=== PATIENT | male | born 1985 | race Two or more races ===

== ENCOUNTER → 2022-02-09 14:53 | Outpatient (BNVA) | payer OTHER, SELFPAY | PROVIDERS: Visit Provider Emergency Medicine | DX: N39.0 Urinary tract infection, site not specified (principal) | CPT/HCPCS: 81000 ==

== ENCOUNTER 2022-11-16 13:40 | Outpatient (CLI) | payer MEDICARE, SELFPAY ==
--- NOTE | 2022-11-16 13:45 | USCV_ITS ---
Chavez Solorzano Age: 37 Gender: M : 1985 Exam Date: 11/16/2022 14:10 Ordering Phys: Samuel Courtney MD Technologist: LAURA Exam Location: [facility] – [place] Indication: murmur BP: 90 / 60 HR: 66 Rhythm: Sinus Technical Quality: Adequate MEASUREMENTS (Male / Female) Normal Values 2D ECHO LVOT Diameter 2.0 cm LV Ejection Fraction MOD 2C 61.4 % LV Ejection Fraction 2C AL 59.6 % LA Diameter 4.0 cm LA Width 4.0 cm LA Height 5.8 cm RA Width 4.6 cm RA Height 5.0 cm Aorta at Sinotubular Diameter 2.3 cm IVC Diameter 1.0 cm M-MODE Aortic Annulus Diameter 3.2 cm LA Ao Ratio MM 1.1 MV E Point Septal Separation 0.7 cm DOPPLER AV Peak Velocity 172.0 cm/s LVOT Peak Velocity 85.0 cm/s AV Area Cont Eq vti 1.3 cm squared AV Area Cont Eq pk 1.6 cm squared MV Peak Velocity 183.0 cm/s MV Area PHT 2.1 cm squared Mitral E to A Ratio 1.6 MV E' Velocity 82.0 cm/s Mitral E to MV E' Ratio 19.1 Mitral E to LV E' Lateral Ratio 19.1 Mitral E to LV E' Septal Ratio 19.1 TR Peak Velocity 264.2 cm/s TR Peak Gradient 27.9 mmHg TR Mean Velocity 214.3 cm/s TR Mean Gradient 19.0 mmHg TR Velocity Time Integral 108.9 cm TV Peak E Velocity 54.0 cm/s Right Atrial Pressure 3.0 mmHg Pulmonary Artery Systolic Pressu 30.9 mmHg PV Peak Velocity 126.0 cm/s RV Acceleration Time 0.2 s RV Ejection Time 0.3 s RV AcT/ET 0.5 FINDINGS Left Ventricle Normal left ventricular size and systolic function, EF 57 %. No regional wall motion abnormalities. Right Ventricle Mildly increased right ventricular size. Normal right ventricular systolic function. Right Atrium Mildly increased right atrial size. Left Atrium The left atrium is normal in size. Mitral Valve Mild prolapse of the anterior mitral leaflet. Mild to moderate eccentric mitral regurgitation with the regurgitant jet directed posteriorly. Mitral valve area by pressure half-time is 2.12 cm squared Aortic Valve No gross abnormalities noted Tricuspid Valve Trace to mild tricuspid valve regurgitation. Pulmonic Valve No gross abnormalities noted Pericardium No pericardial effusion. Aorta Normal aortic annulus size. IVC Normal inferior vena cava. CONCLUSIONS Normal left ventricular size and systolic function, EF 57 %. No regional wall motion abnormalities. Mild prolapse of the anterior mitral leaflet. Mild to moderate eccentric mitral regurgitation with the regurgitant jet directed posteriorly. Mitral valve area by pressure half-time is 2.12 cm squared. Trace to mild tricuspid valve regurgitation. Estimated pulmonary artery peak systolic pressure 31 mmHg. There is no pericardial effusion. There are no intracardiac masses. No similar previous studies are available for comparison Dr Abigail Ramírez MD [facility] (Electronically Signed) Final Date: 16 November 2022 17:48 S
== END 2022-11-16 13:41 | disposition home or self-care (01) ==
LOC: RAD 13:43
PROVIDERS: PCP Family Medicine Adult Medicine; Visit Provider Family Medicine Adult Medicine
DX: R01.1 Cardiac murmur, unspecified (principal); I08.1 Rheumatic disorders of both mitral and tricuspid valves
CPT/HCPCS: 93306

== ENCOUNTER → 2022-12-12 11:09 | Outpatient (BNVA) | payer MEDICARE, SELFPAY | PROVIDERS: PCP Family Medicine Adult Medicine; Visit Provider Nurse Practitioner Family | DX: R39.9 Unspecified symptoms and signs involving the genitourinary system (principal) | CPT/HCPCS: 81000 ==

== ENCOUNTER → 2023-01-11 07:48 | Outpatient (BNVA) | payer MEDICARE, SELFPAY | PROVIDERS: PCP Family Medicine Adult Medicine; Visit Provider Family Medicine Adult Medicine | DX: R63.5 Abnormal weight gain (principal); E66.9 Obesity, unspecified; N40.1 Benign prostatic hyperplasia with lower urinary tract symptoms; R30.0 Dysuria; Z00.00 Encounter for general adult medical examination without abnormal findings; Q24.9 Congenital malformation of heart, unspecified; Q90.9 Down syndrome, unspecified | CPT/HCPCS: 80053; 80061; 83036; 84443; G0103 ==

== ENCOUNTER 2023-02-23 11:35 | Outpatient (CLI) | payer MEDICARE, SELFPAY ==
--- NOTE | 2023-02-23 11:30 | USCV_ITS ---
Chavez Solorzano Age: 37 Gender: M : 1985 Exam Date: 02/23/2023 12:03 Ordering Phys: Che Reyna Technologist: Alexx Hector Exam Location: [facility] [place]ication: right lower leg pain PROCEDURES: Venous duplex imaging was performed in only the right lower extremity. The following venous structures were evaluated: common femoral vein, profunda vein, proximal portion of the greater saphenous vein, superficial femoral vein, and the popliteal vein. In addition, the posterior tibial and peroneal trunk were evaluated. Serial compression, augmentation maneuvers, and spectral Doppler flow evaluation were performed. FINDINGS: Normal 2-D Doppler and augmentation and compressibility throughout the lower extremity venous structures. Additional imaging through the proximal calf veins also reveals no thrombus. Limited evaluation of the greater saphenous vein is patent with no thrombus. CONCLUSIONS No evidence of right lower extremity DVT. Siddharth Christensen MD (Electronically Signed) Final Date: 23 Feb 2023 13:33 S
== END 2023-02-23 11:36 | disposition home or self-care (01) ==
PROVIDERS: PCP Family Medicine Adult Medicine; Visit Provider Registered Nurse Neonatal Intensive Care
DX: M79.661 Pain in right lower leg (principal)
CPT/HCPCS: 93971

== ENCOUNTER → 2023-03-29 13:29 | Outpatient (BNVA) | payer MEDICARE, SELFPAY | PROVIDERS: PCP Family Medicine Adult Medicine; Visit Provider Specialist | DX: S89.91XA Unspecified injury of right lower leg, initial encounter (principal); W01.0XXA Fall on same level from slipping, tripping and stumbling without subsequent striking against object, initial encounter | CPT/HCPCS: 73560; 73565; 99204 ==

== ENCOUNTER → 2023-05-08 10:04 | Outpatient (BNVA) | payer MEDICARE, SELFPAY | PROVIDERS: PCP Family Medicine Adult Medicine; Visit Provider Nurse Practitioner Family | DX: S89.91XA Unspecified injury of right lower leg, initial encounter (principal); W01.0XXA Fall on same level from slipping, tripping and stumbling without subsequent striking against object, initial encounter; R52 Pain, unspecified | CPT/HCPCS: 71046; 99213 ==

== ENCOUNTER 2023-06-06 10:42 | Outpatient (CLI) | payer MEDICARE, SELFPAY ==
--- NOTE | 2023-06-06 13:45 | MR_ITS ---
WS: [id number] MRI RIGHT LOWER EXTREMITY WITHOUT CONTRAST. COMPARISON: Knee radiograph 03/21/2023. Multiplanar, multisequence imaging is performed without contrast. No acute fracture or signal abnormality is identified. The tibial plateau appears intact. There is no marrow edema appreciated. The knee joint is not as well visualized as it is on the edge of the magne tic field. There is a small suprapatellar joint effusion. No muscle edema and no muscle atrophy. IMPRESSION: 1. Small suprapatellar joint effusion. 2. No marrow edema or fractures. 3. No muscle atrophy.
== END 2023-06-06 10:43 | disposition home or self-care (01) ==
PROVIDERS: PCP Family Medicine Adult Medicine; Visit Provider Nurse Practitioner Family
DX: S89.91XA Unspecified injury of right lower leg, initial encounter (principal); M79.604 Pain in right leg; X58.XXXA Exposure to other specified factors, initial encounter; M25.461 Effusion, right knee
CPT/HCPCS: 73718

== ENCOUNTER → 2023-06-16 09:53 | Outpatient (BNVA) | payer MEDICARE, SELFPAY | PROVIDERS: PCP Family Medicine Adult Medicine; Visit Provider Internal Medicine | DX: Q90.9 Down syndrome, unspecified (principal); Q24.9 Congenital malformation of heart, unspecified; I34.0 Nonrheumatic mitral (valve) insufficiency | CPT/HCPCS: 99214 ==

== ENCOUNTER → 2023-06-19 13:15 | Outpatient (BNVA) | payer MEDICARE, SELFPAY | PROVIDERS: PCP Family Medicine Adult Medicine; Visit Provider Specialist | DX: M79.661 Pain in right lower leg (principal) | CPT/HCPCS: 99213 ==

== ENCOUNTER → 2024-01-03 11:20 | Outpatient (BNVA) | payer MEDICARE, SELFPAY | PROVIDERS: PCP Family Medicine Adult Medicine; Visit Provider Family Medicine Adult Medicine | DX: Q24.9 Congenital malformation of heart, unspecified (principal); E66.9 Obesity, unspecified; N40.1 Benign prostatic hyperplasia with lower urinary tract symptoms; Q90.9 Down syndrome, unspecified | CPT/HCPCS: 80053; 85025; G0103 ==

== ENCOUNTER → 2024-01-09 14:09 | Outpatient (BNVA) | payer MEDICARE, SELFPAY | PROVIDERS: PCP Family Medicine Adult Medicine; Visit Provider Podiatrist Foot & Ankle Surgery | DX: B35.1 Tinea unguium (principal) | CPT/HCPCS: 99203 ==

== ENCOUNTER 2024-05-30 13:00 | Outpatient (CLI) | payer MEDICARE, SELFPAY ==
--- NOTE | 2024-05-30 13:00 | USCV_ITS ---
Chavez Solorzano Age: 38 Gender: M : 1985 Exam Date: 05/30/2024 13:57 Ordering Phys: Joni Jones M.D ([email or web address]) Technologist: JOAQUINA Exam Location: [facility] – [place] Indication: Congenital heart disease BP: / HR: 72 Rhythm: Sinus Technical Quality: Adequate MEASUREMENTS (Male / Female) Normal Values 2D ECHO LV Diastolic Diameter PLAX 5.0 cm 4.2 - 5.9 / 3.9 - 5.3 cm LV Systolic Diameter PLAX 2.8 cm IVS Diastolic Thickness 1.6 cm 0.6 - 1.0 / 0.6 - 0.9 cm IVS Systolic Thickness 2.1 cm LVPW Diastolic Thickness 1.1 cm 0.6 - 1.0 / 0.6 - 0.9 cm LVPW Systolic Thickness 1.7 cm LVOT Diameter 2.0 cm LV Ejection Fraction 2D Teich 75.3 % LV Ejection Fraction MOD 4C 66.5 % LV Ejection Fraction MOD 2C 72.5 % LV Ejection Fraction 2C AL 73.3 % LA Diameter 3.9 cm RA Systolic Volume 4C AL 40.9 ml RA Systolic Volume 4C MOD 39.9 ml LA Sys Volume AL 55.6 cm cubed LA Sys Volume Index AL 27.0 cm cubed/m squared Aorta at Sinotubular Diameter 2.9 cm IVC Diameter 2.0 cm M-MODE LA Ao Ratio MM 1.4 AV Cusp Separation MM 1.6 cm DOPPLER AV Peak Velocity 169.0 cm/s LVOT Peak Velocity 81.0 cm/s AV Area Cont Eq vti 1.7 cm squared AV Area Cont Eq pk 1.5 cm squared MV Peak Velocity 297.0 cm/s MV Area PHT 2.2 cm squared Mitral E to A Ratio 1.4 TR Peak Velocity 294.0 cm/s TR Peak Gradient 34.6 mmHg TR Mean Velocity 196.0 cm/s TR Mean Gradient 18.2 mmHg TR Velocity Time Integral 73.0 cm TV Peak E Velocity 67.0 cm/s PV Peak Velocity 103.0 cm/s FINDINGS Left Ventricle Left ventricle is normal in size. LV systolic function is normal with EF 55 to 60%. No wall motion abnormalities are seen. Right Ventricle The right ventricle is normal in size and function. Right Atrium The right atrium is normal in size. Left Atrium The left atrium is normal in size. Mitral Valve Possible mild mitral valve prolapse. Mild to moderate mitral regurgitation. Aortic Valve Structurally normal aortic valve. Mild to moderate aortic regurgitation. Tricuspid Valve Mild to moderate tricuspid regurgitation. Pulmonary artery systolic pressure 30-35mmHg. Pulmonic Valve Not well visualized Pericardium Normal pericardium without effusion. Aorta Normal ascending aorta dimension. IVC The inferior vena cava appears normal. CONCLUSIONS LV systolic function is normal with EF of 55 to 60%. Possible mild mitral valve prolapse. Mild to moderate mitral regurgitation Mild to moderate aortic regurgitation Mild to moderate tricuspid regurgitation Compared to prior echocardiogram, aortic regurgitation is noted on current study. Joni Jones MD (Electronically Signed) Final Date: 03 June 2024 17:35 S
== END 2024-05-30 13:33 | disposition home or self-care (01) ==
PROVIDERS: PCP Family Medicine Adult Medicine; Visit Provider Internal Medicine
DX: I34.0 Nonrheumatic mitral (valve) insufficiency (principal); Q24.9 Congenital malformation of heart, unspecified; I07.1 Rheumatic tricuspid insufficiency
CPT/HCPCS: 93306

== ENCOUNTER → 2024-06-18 12:55 | Outpatient (BNVA) | payer MEDICARE, SELFPAY | PROVIDERS: PCP Family Medicine Adult Medicine; Visit Provider Internal Medicine | DX: Q90.9 Down syndrome, unspecified (principal); Q24.9 Congenital malformation of heart, unspecified; I34.0 Nonrheumatic mitral (valve) insufficiency | CPT/HCPCS: 99214 ==

== ENCOUNTER 2025-04-25 06:59 | Outpatient (CLI) | payer MEDICARE, SELFPAY ==
--- NOTE | 2025-04-25 07:15 | USCV_ITS ---
Chavez Solorzano Age: 39 Gender: M : 1985 Exam Date: 04/25/2025 07:19 Ordering Phys: Joni Jones M.D ([email or web address]) Technologist: Exam Location: [facility] – [place] Indication: ao pros at 5yr BP: 120 / 74 HR: 67 Rhythm: Sinus Technical Quality: Adequate MEASUREMENTS (Male / Female) Normal Values 2D ECHO LV Diastolic Diameter PLAX 4.4 cm 4.2 - 5.9 / 3.9 - 5.3 cm IVS Diastolic Thickness 1.2 cm 0.6 - 1.0 / 0.6 - 0.9 cm IVS Systolic Thickness 1.6 cm LVPW Diastolic Thickness 1.4 cm 0.6 - 1.0 / 0.6 - 0.9 cm LVPW Systolic Thickness 1.8 cm LVOT Diameter 2.1 cm LV Ejection Fraction 2D Teich 55.6 % LV Ejection Fraction MOD 4C 55.4 % LV Ejection Fraction MOD 2C 66.3 % LV Ejection Fraction 2C AL 67.0 % LA Diameter 4.2 cm RA Systolic Volume 4C AL 52.2 ml RA Systolic Volume 4C MOD 51.8 ml Aorta at Sinotubular Diameter 2.8 cm IVC Diameter 2.3 cm M-MODE LA Ao Ratio MM 1.2 AV Cusp Separation MM 2.4 cm DOPPLER AV Peak Velocity 146.0 cm/s LVOT Peak Velocity 62.0 cm/s AV Area Cont Eq vti 1.5 cm squared AV Area Cont Eq pk 1.4 cm squared MV Area PHT 1.9 cm squared Mitral E to A Ratio 1.6 TR Peak Velocity 327.0 cm/s TR Peak Gradient 42.8 mmHg TV Peak E Velocity 106.0 cm/s PV Peak Velocity 110.7 cm/s FINDINGS Left Ventricle Normal left ventricular size, systolic function and wall thickness, with no regional wall motion abnormalities. Left ventricular ejection fraction is estimated at 55 %. Normal diastolic function. Right Ventricle The right ventricle is normal in size and function. Right Atrium The right atrium is normal in size. Left Atrium Moderately increased left atrial size. Mitral Valve Thickened mitral valve. No mitral valve stenosis. Trace mitral valve regurgitation. Aortic Valve Moderate aortic valve calcification. No aortic valve stenosis. Mild aortic valve regurgitation. Tricuspid Valve Structurally normal tricuspid valve without significant stenosis or regurgitation. Pulmonary artery systolic pressure is normal. Pulmonic Valve Structurally normal pulmonic valve without significant stenosis. There is no pulmonic regurgitation. Pericardium Normal pericardium without effusion. Aorta Normal ascending aorta dimension. IVC The inferior vena cava appears normal. CONCLUSIONS Normal left ventricular size, systolic function and wall thickness, with no regional wall motion abnormalities. Left ventricular ejection fraction is estimated at 55 %. Normal diastolic function. Moderately increased left atrial size. Thickened mitral valve. No mitral valve stenosis. Trace mitral valve regurgitation. Moderate aortic valve calcification. No aortic valve stenosis. Mild aortic valve regurgitation. There is no pericardial effusion. Right atrial pressure is around 5 mm of mercury. Rosi Roque MD (Electronically Signed) Final Date: 26 April 2025 00:13 S
== END 2025-04-25 07:00 | disposition home or self-care (01) ==
LOC: RAD 07:00
PROVIDERS: PCP Family Medicine; Visit Provider Internal Medicine
DX: I34.0 Nonrheumatic mitral (valve) insufficiency (principal); I35.1 Nonrheumatic aortic (valve) insufficiency; I07.1 Rheumatic tricuspid insufficiency; I35.8 Other nonrheumatic aortic valve disorders; R93.1 Abnormal findings on diagnostic imaging of heart and coronary circulation
CPT/HCPCS: 93306

== ENCOUNTER → 2025-06-17 14:05 | Outpatient (BNVA) | payer MEDICARE, SELFPAY | PROVIDERS: PCP Family Medicine; Visit Provider Internal Medicine | DX: Q90.9 Down syndrome, unspecified (principal); Q24.9 Congenital malformation of heart, unspecified; I34.0 Nonrheumatic mitral (valve) insufficiency | CPT/HCPCS: 99213 ==